=== PATIENT | female | born 1935 | race Caucasian/White ===

== ENCOUNTER 2023-02-27 19:05 | Emergency (ER) | payer MEDICARE ==
[2023-02-27] MEDS ORDERED: Acetaminophen 500 MG TAB ONE (19:55)
== END 2023-02-27 22:45 | disposition home or self-care (01) ==
LOC: CSHERS 19:05
DX: S09.90XA Unspecified injury of head, initial encounter (principal); M25.551 Pain in right hip; I10 Essential (primary) hypertension; E03.9 Hypothyroidism, unspecified; Z79.899 Other long term (current) drug therapy
CPT/HCPCS: 70450; 72125; 72170